=== PATIENT | male | born 1985 | race Caucasian/White ===

== ENCOUNTER 2022-11-26 14:00 | Outpatient (RCR) | payer OTHER, SELFPAY ==
--- NOTE | 2022-11-26 11:32 | PC.NURSE ---
Met with Vidal to complete a nursing assessment however Vidal did not want to complete the assessment as he stated he thought this was not a good time for him to do the program. He stated he is currently homeless living in a mcfp and has too many things going on including the need to find housing. He stated he is not able to focus while at the program as he needs to take care of his basic needs. He also stated his wants to take the children and move to [place] thus he has to deal with this as well. He reports he is on [place] until December and has money for an apartment however he needs to concentrate of finding one. I gave patient written resources to help him find housing. One he is more stablized with basic needs he wants to come back to the program. He denied SI or thoughts to harm himself. Reports he is safe. [facility] staff is aware.
== END 2022-11-26 23:59 | disposition home or self-care (01) ==
LOC: HO.PHPA 14:00
PROVIDERS: Visit Provider Psychiatry & Neurology Psychiatry
DX: F33.1 Major depressive disorder, recurrent, moderate (principal); F43.10 Post-traumatic stress disorder, unspecified; F90.9 Attention-deficit hyperactivity disorder, unspecified type; F41.1 Generalized anxiety disorder
CPT/HCPCS: 90791; 90853

== ENCOUNTER → 2023-03-19 08:45 | Outpatient (BNV) | payer OTHER, SELFPAY | PROVIDERS: Visit Provider Psychiatry & Neurology Psychiatry | DX: F43.10 Post-traumatic stress disorder, unspecified (principal); F32.2 Major depressive disorder, single episode, severe without psychotic features | CPT/HCPCS: 99212; 99214 ==

== ENCOUNTER 2023-03-29 10:30 | Outpatient (RCR) | payer OTHER, SELFPAY ==
[2023-03-19 11:45] VITALS: BP 130/92; PULSE 80; TEMP 36.6; BMI 33.3
--- NOTE | 2023-03-19 12:36 | PC.NURSE ---
Patient has a New PCP appointment with [facility] [place] office via telephone call. May 14, 2023 at 8:20 am. Office Number [phone]. [address] [facility]
--- NOTE | 2023-03-19 12:42 | PC.ADMIT ---
Patient is a 37 year old male who self referred back to [facility] d/t increased depression, anxiety, and PTSD sxs. Patient was at [facility] for one day in October however was not able to complete d/t homeless status, looking for housing. Patient reports stresses including his spouse moving to [place] with is daughter, his son who is autistic living in a residential home, DCF involvement, and unemployment. He currently is living in a room at a boarding house. 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 Patient stated he used condoms from [facility]. Patient plans on going to [facility] for STD testing. Patient stated he plans on going to [place] [facility] on of this week after program. Denied any symptoms of STD's t present. Patient is alert and oriented x4. Calm and cooperative. Presents with depressed mood and affect. Denied SI or HI. Safety plan given to patient and reviewed with him. Medications reconciled with patient and patient's pharmacy. He reports taking medications as prescribed.
--- NOTE | 2023-03-19 15:36 | HO.PS.ADMBH ---
[facility] Date of Service: 03/19/23 Chief Complaint: PTSD,BHUMI,MDD,ADHD Sources of Information: patient interviewed and chart reviewed HPI Healthcare Proxy: No Guardianship: No Medical Problems Affecting Mental Status: No Narrative: Start a partial hospital program today. Referred in the context of PTSD and depression and alcohol use disorder. Patient reports having lots of stressors and changes recently have impacted mood. When depressed experienced low mood, anxiety, no motivation, sleep and appetite disturbance and suicidal thoughts. Stressors include homelessness and had to leave where he was staying in August 2022. Thankfully renting a room for the last 2 months which overall is going well. 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 Plans on challenging this with an ip attorney. His 16-year-old daughter also relocated to [place] with her biological mother. He also has a son that is in residential treatment with autism. Reports that his left with the children in September 2021 without warning. Fell into financial stress in context of same. On a positive note recently rescued a dog. Recently utilizing juventino and working with the gnosticist and outreach. He is finding his juventino to be very rewarding and has noticed a significant improvement in his mood. Regarding alcohol use, does have a history of extended periods of sobriety. Last drink was in July of this year. Regarding medications has been on Wellbutrin 200 mg for 6 years at varying doses, Lexapro 20 mg for a couple of years and trazodone was tried in October but stopped this due to significant sedation. Also Xanax 0.5 mg 3 times per day, but does find this leads him to be sedate. Was previously on Ativan but experienced muscle jerking. Reports overall he would like to be on less medications and nonmedication approaches are his preference. We did discuss past medication history which has included Prozac, Effexor, maybe buspirone, Risperdal, olanzapine. Never been on Remeron, lithium, Abilify or Seroquel. Reports medical marijuana has been very helpful. Past Psychiatric History: Regarding medications has been on Wellbutrin 200 mg for 6 years at varying doses, Lexapro 20 mg for a couple of years and trazodone was tried in October but stopped this due to significant sedation. Also Xanax 0.5 mg 3 times per day, but does find this leads him to be sedate. Was previously on Ativan but experienced muscle jerking. Reports overall he would like to be on less medications and nonmedication approaches are his preference. We did discuss past medication history which has included Prozac, Effexor, maybe buspirone, Risperdal, olanzapine. Never been on Remeron, lithium, Abilify or Seroquel. Reports medical marijuana has been very helpful. History of rehabs and detoxes. No history of psychosis. No clear manic episodes. History of suicidal thoughts but never acted on same. Last time was when he was in [place] around 6 years ago. Nothing acute [facility] Medical History (Updated 03/19/23 @ 15:58 by Gordon Dobbs MD) No known health problems Family History: Alcohol use disorder Social History: Stressors include homelessness and had to leave where he was staying in August 2022. Thankfully renting a room for the last 2 months which overall is going well. 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 Plans on challenging this with an ip attorney. His 16-year-old daughter also relocated to [place] with her biological mother. He also has a son that is in residential treatment with autism. Reports that his left with the children in September 2021 without warning. Fell into financial stress in context of same. On a positive note recently rescued a dog. Recently utilizing juventino and working with the gnosticist and outreach. He is finding his juventino to be very rewarding and has noticed a significant improvement in his mood. Substance History: Alcohol use disorder Diagnostics Vital Signs (24Hr): Vital Signs - 24 hr 03/19/23 11:45 Temperature 98 F Pulse Rate 80 Blood Pressure 130/92 H BMI result Body Mass Index 33.3 Meds/Allergies Meds Home Medications Medication Instructions Recorded Confirmed Type alprazolam 0.5 mg tablet 0.5 mg PO TID PRN anxiety 03/19/23 03/19/23 History escitalopram oxalate 20 mg tablet 20 mg PO DAILY 03/19/23 03/19/23 History esomeprazole magnesium 40 mg 40 mg PO DAILY 03/19/23 03/19/23 History capsule,delayed release (Nexium) trazodone 50 mg tablet 25 - 100 mg PO BEDTIME PRN insomnia 03/19/23 03/19/23 History Allergies Allergies Allergy/AdvReac Type Severity Reaction Status Date / Time amoxicillin Allergy Unknown Verified 11/26/22 11:13 Mental Status Exam Mental Status Exam Narrative: Pleasant. Engaged. Fairly presented. Organized. Bright in affect. No SI. No HI. No agitation. No psychosis. Insight and judgment fair Telehealth Telehealth Location of provider rendering services: other ([facility]) Location of patient: other ([facility]) Patient Identification confirmed using: Name, : Yes Telehealth method: video Patient verbally consented to treatment: Yes Minutes spent on Phone/Video with Pt.: 30 Assessment & Plan Assessment & Plan (1) Severe major depression: Status: Acute Code(s): F32.2 - Major depressive disorder, single episode, severe without psychotic features (2) PTSD (post-traumatic stress disorder): Status: Acute Code(s): F43.10 - Post-traumatic stress disorder, unspecified Plan Overall there has been improvement in mood symptoms. These appear to be no medication related i.e. utilizing juventino and connecting with community. Wellbutrin does not appear to have had any benefit or side effects and we will therefore discontinue same in the context of patient's wish to be on as little medication as possible. We will follow-up sometime next week to review mood and ensure stability. Patient educated on: diagnosis, medication risk/benefits and therapeutic strategies Informed Consent: understands Reason for continued partial hosp. stay Substantial Risk for: med/psych decompensation Certification I certify that partial hospital treatment is medically necessary due to the symptoms and problems resulting from the patient's mental illness and the failure to treat the patient at the partial hospital level of care would likely result in the patient requiring inpatient psychiatric care which could not be prevented at a less intensive level of care. Time Spent With Patient Time: Total time managing care of this patient today _50___ minutes.
--- NOTE | 2023-03-21 17:35 | HO.PHP ---
Clients case was reviewed and opened today in treatment team.
--- NOTE | 2023-03-22 15:20 | HO.PHP ---
PHP staff member faxed over a referral for OP therapy and psychiatry through [facility] office. [facility] staff is awaiting a scheduled date and time with those appointments for Vidal.
--- NOTE | 2023-03-26 16:06 | HO.PHP ---
[facility] staff followed up with [facility] around Vidal's after care appointments for OP therapy and Psychiatry. [facility] staff spoke with Maddy, in which Maddy stated that she is going to work on scheduling those dates and will contact the [facility] staff member back later today. [facility] staff was receptive.
--- NOTE | 2023-03-27 08:12 | HO.PHP ---
[facility] staff received a phone call from Maddy from [facility], who noted that Vidal's OP therapy appointment is on April 08, 2023 at 10 AM with Paula Lorenzo at the [facility].
--- NOTE | 2023-03-27 08:52 | HO.PHP ---
[facility] staff received a phone call from Chelsea through [facility], who provided Vidal's med managment appointment through [facility] on [facility] with Tina Sarwatdaina on April 30, 2023 at 2 PM. Office number [phone]. [address] [place], [place] [id number].
--- NOTE | 2023-03-28 16:50 | HO.PHP ---
Vidal met with [facility] staff member regarding his discharge to see if he could discharge tomorrow or next Saturday. Vidal mentioned he does not want to leave in the middle of the week. [facility] staff assessed to see if he feels ready for discharge. Vidal disclosed now that he has his appointment times for OP therapy and med management, he feels he can continue to do his work in a one on one setting. [facility] staff was receptive and mentioned we will make his discharge date tomorrow. [facility] staff informed him if he feels he needs the program again, he could always contact back. Vidal was receptive. Vidal talked about his involvement with DCF and his confusion to what they are looking for. [facility] staff provided psycho-education and encouraged him to further ask his DCF worker to clarify his goals they are looking for. Vidal was receptive.
[2023-03-29 11:34] VITALS: BMI 28.7
--- NOTE | 2023-03-29 11:54 | HO.PHPPROGNO ---
Subjective Subjective Date of Service: 03/29/23 Reason For Visit: PTSD,BHUMI,MDD,ADHD Healthcare Proxy: No Guardianship: No Medical Problems Affecting Mental Status: No Interim History: As per evaluation 03/19/23: Referred in the context of PTSD and depression and alcohol use disorder. Patient reports having lots of stressors and changes recently have impacted mood.? When depressed experienced low mood, anxiety, no motivation, sleep and appetite disturbance and suicidal thoughts.? Stressors include homelessness and had to leave where he was staying in August 2022.? Thankfully renting a room for the last 2 months which overall is going well.? 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 Plans on challenging this with an supportive employment case manager.? His 16-year-old daughter also relocated to [place] with her biological mother.? He also has a son that is in residential treatment with autism.? Reports that his left with the children in September 2021 without warning.? Fell into financial stress in context of same.? On a positive note recently rescued a dog.? Recently utilizing juventino and working with the hinduism and outreach.? He is finding his juventino to be very rewarding and has noticed a significant improvement in his mood. Regarding alcohol use, does have a history of extended periods of sobriety.? Last drink was in July of this year. Regarding medications has been on Wellbutrin 200 mg for 6 years at varying doses, Lexapro 20 mg for a couple of years and trazodone was tried in October but stopped this due to significant sedation.? Also Xanax 0.5 mg 3 times per day, but does find this leads him to be sedate.? Was previously on Ativan but experienced muscle jerking.? Reports overall he would like to be on less medications and nonmedication approaches are his preference.? We did discuss past medication history which has included Prozac, Effexor, maybe buspirone, Risperdal, olanzapine.? Never been on Remeron, lithium, Abilify or Seroquel.? Reports medical marijuana has been very helpful. Overall there has been improvement in mood symptoms.? These appear to be no medication related i.e. utilizing juventino and connecting with community.? Wellbutrin does not appear to have had any benefit or side effects and we will therefore discontinue same in the context of patient's wish to be on as little medication as possible.? We will follow-up sometime next week to review mood and ensure stability. Today: Partial hospital nursing communicated that patient has discontinued trazodone is no benefit for sleep and has been sleeping poorly i.e. less than 4 hours per night. today patient reports his mood is in a good space. Thankful for the care he has received at the [facility] program. Coping skills, affirmations etc.. Not being hard on himself. Regarding sleep prefers non medication for/herbal approaches such as the Garry Littlejohn oil which really does help with sleep when he utilize that. Reports trazodone is useful but causes sedation which he experienced when he was visiting his son. Is helping support emotionally his 16-year-old daughter in [place]. Feeling positive regarding aftercare being set up through [facility] with a prescriber appointment in April and a therapy appointment before. Medication Compliance: Yes Side effects from medications: No Attending Groups: Yes Review of Systems Acute medical concerns: No Review of Systems Review of Systems Unremarkable Mental Status Exam Mental Status Exam Narrative: Pleasant. Engaged. While presented. Organized. Euthymic. No SI. No HI. No agitation or psychosis. Insight judgment fair Diagnostics Vital Signs (24Hr): Vital Signs - 24 hr 03/29/23 11:31 Temperature 99.3 F BMI result Body Mass Index 28.7 Assessment & Plan Assessment & Plan (1) PTSD (post-traumatic stress disorder): Status: Acute Code(s): F43.10 - Post-traumatic stress disorder, unspecified (2) Severe major depression: Status: Acute Code(s): F32.2 - Major depressive disorder, single episode, severe without psychotic features Plan Has clearly benefit from [facility] programming. Stable on current regimen. No negative effects from coming off wellbutrin. Sleep broken and trazodone not helpful/causes side effects. Prefers to use herbal for/non medication approaches regarding sleep. Would like to maintain Lexapro and Nexium. Is on Xanax and hopefully will come off this in the future. Happy that he has community-based providers including a med provider schedule in April. Refill sent for Lexapro and also Nexium. Believes he has a refill for Xanax and if not he will seek prior prescriber to complete a bridge prescription until April. Patient educated on: medication risk/benefits and therapeutic strategies Informed Consent: understands Reason for contiued partial hosp. stay Substantial Risk for: stable for discharge Certification I certify that partial hospital treatment is medically necessary due to the symptoms and problems resulting from the patient's mental illness and the failure to treat the patient at the partial hospital level of care would likely result in the patient requiring inpatient psychiatric care which could not be prevented at a less intensive level of care. Total time managing care of this patient today _20___ minutes. Discharge Plan Discharge Attending provider: Kulwant Lopez Additional Instructions: [facility] telephone call. May 14, 2023 at 8:20 am. Office Number [phone]. [address] [facility]. Vidal received an appointment for OP therapy through [facility] on [facility] with Paula Lorenzo on April 08, 2023 at 10 AM.Office number is . ?[address] [place] [address]. Vidal received an appointment for med management through [facility] with Tina Gaona on April 30, 2023 at 2 PM. Office number [phone]. [address] [place] [address]. Medications: Continued alprazolam 0.5 mg tablet 0.5 mg PO TID PRN (Reason: anxiety) esomeprazole magnesium [Nexium] 40 mg Capsule,Delayed Release(Dr/Ec) 40 mg PO DAILY 30 Days Qty: 30 0RF escitalopram oxalate 20 mg tablet 20 mg PO DAILY 30 Days Qty: 30 0RF Discontinued bupropion HCl 200 mg tablet sustained-release 12 hr 200 mg PO QAM trazodone 50 mg tablet 25 - 100 mg PO BEDTIME PRN (Reason: insomnia) Stand Alone Forms: Patient Portal Discharge page Patient Education: Depression (DC) Telehealth Telehealth Location of provider rendering services: other ([facility]) Location of patient: other ([facility]) Patient Identification confirmed using: Name, : Yes Telehealth method: video Patient verbally consented to treatment: Yes Minutes spent on Phone/Video with Pt.: 15
== END 2023-03-29 23:59 | disposition home or self-care (01) ==
LOC: HO.PHPA 10:30
PROVIDERS: Visit Provider Psychiatry & Neurology Psychiatry
DX: F32.2 Major depressive disorder, single episode, severe without psychotic features (principal); F43.10 Post-traumatic stress disorder, unspecified
CPT/HCPCS: 90791; 90853

== ENCOUNTER 2025-04-23 08:24 | Outpatient (REF) | payer OTHER, SELFPAY ==
--- NOTE | ~2025-04-23 | XR_ITS ---
EXAMINATION: XR SHOULDER 2 OR MORE VIEWS RIGHT HISTORY: M25.519 - Pain in unspecified shoulder COMPARISON: There are no prior studies available for comparison. FINDINGS: Three views of the right shoulder are submitted. Osseous mineralization is normal. There is no fracture or dislocation. The glenohumeral and acromioclavicular joint spaces are preserved. The soft tissues are unremarkable. XR/XR shoulder RT min 2V IMPRESSION: Unremarkable examination of the right shoulder. Electronically signed by: Dewayne Cuba MD 04/23/2025 11:42 AM EDT
--- OUTSIDE RECORDS SUMMARY | 2025-04-23 08:45 | XMS_ITS | Clinical Summary ---
Author Organization [employer] Address [address] [place] [address] Care Team Providers Care Wearing Apparel Folder Name Role Phone Unavailable Primary Care Provider Unavailabl e Encounters Date Type Department Care Team Description 04/14/2025 Telephone [facility] [address] [place] [address] Huan Pierce MD [facility] - New Patient Assistance from Last 3 Months Social History Tobacco Use Types Packs/Day Years Used Date Smoking Tobacco: Never Assessed Sex and Gender Information Value Date Recorded Sex Assigned at Not on file Legal Sex Male 1:59 PM EDT Gender Identity Not on file Sexual Orientation Not on file Plan of Treatment Health Maintenance Due Date Last Done Comments Depression Screening 1986 HIV Screening 1986 Lipid Panel 1986 SDOH Screening 1986 Disability Screening 1986 Alcohol/Substance Use Screening 1998 Tobacco Screening 1998 Family Planning (PISQ) 2001 HPV Vaccines (1 - Male 3-dos e series) 2001 Hepatitis C Screening 2004 DTaP/Tdap/Td Vaccines (1 - Tdap) 2005 Hepatitis B Vaccines (1 of 3 - 19+ 3-dose series) 2005 COVID-19 Vaccine (1 - 2023-2 5 season) 2025 Influenza Vaccine (#1) 2025 Zoster Vaccines (1 of 2) 2036 RSV Patients and Pa tients Aged 60 years or older (1 - 1-dose 75+ series) 2061 HIB Vaccines Aged Out No longer eligi ble based on patient's age to complete this topic Hepatitis A Vaccines Aged Out No long er eligible based on patient's age to complete this topic IPV Vaccines Aged Out No longer eligi ble based on patient's age to complete this topic Meningococcal B Vaccine Aged Out No l onger eligible based on patient's age to complete this topic Meningococcal Vaccine Aged Out No aubrey garret eligible based on patient's age to complete this topic Pneumococcal Vaccine: Pediat rics (0 to 5 Years) and At-Risk Patients (6 to 49) Years Aged Out No longer eligible b ased on patient's age to complete this topic RSV under 20 months Aged Out No longe r eligible based on patient's age to complete this topic Rotavirus Vaccines Aged Out No longer eligible based on patient's age to complete this topic
== END 2025-04-23 08:25 | disposition home or self-care (01) ==
LOC: HO.HOSX 08:24
PROVIDERS: Visit Provider Physician Assistant
DX: M79.601 Pain in right arm (principal); M54.2 Cervicalgia; R29.898 Other symptoms and signs involving the musculoskeletal system; R20.0 Anesthesia of skin; R20.2 Paresthesia of skin; M25.511 Pain in right shoulder
CPT/HCPCS: 73030; 99202

== ENCOUNTER 2025-04-23 10:48 | Outpatient (AMB) | payer OTHER, SELFPAY ==
--- NOTE | 2025-04-23 11:10 | A.OFFVIS_ITS ---
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 Patient has been homeless and has been sleeping on his right side for a long time which increased his pain. He mentions that his pain has been going on for 2 years and a half is unable to sleep. He was seen at the urgent care for his shoulder and gave him a topical cream and referral to us. His pain is having sharp ongoing pain. Patient notices tingling through out his whole arm and it radiates up to his neck. 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 Harrison is a 39-year-old right-hand dominant male who presents to the office today for evaluation of pain, weakness, numbness and tingling in the right upper extremity. He reports that he was homeless in the past and he was sleeping out of his car for 2 years. He reports the pain has been present for the past 2 years. 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 He is tearful at today's visit. [facility] Medical History (Updated 04/23/25 @ 11:50 by Laura Nuno PA-C) No known health problems Social History (Updated 04/23/25 @ 11:15 by Hayley Vazquez) Household Members: Other Household Members Other:: Dog Alcohol intake: never Patient Tobacco Use Status: Current everyday Tobacco user Tobacco use type: Cigarette Cigarettes Per Day: 10 Years Smoked: 22 Current occupation: right hand dominant Review of Systems Const All systems reviewed & are unremarkable except as noted in HPI and below Physical Exam Vital Signs: BMI result Body Mass Index 37.0 Const General: cooperative, healthy appearing and no acute distress Resp Effort & Inspection: normal respiratory effort and able to speak in complete sentences Extrem Other: Right upper extremity forward flexion abduction to 90 degrees. External rotation to end range. Pain with cross-body reach. Unable to attempt empty can due to patient pain. Reports numbness and tingling in all digits. 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 Able to perform wrist flexion and extension. Psych Appearance: grossly normal Mental Status: mental status grossly normal Attitude: cooperative Assessment & Plan Assessment & Plan (1) Right upper limb pain: Code(s): M79.601 - Pain in right arm Category: Medical (2) Neck pain: Code(s): M54.2 - Cervicalgia Category: Medical (3) Right arm weakness: Code(s): R29.898 - Other symptoms and signs involving the musculoskeletal system Category: Medical (4) Numbness and tingling of right arm: Code(s): R20.0 - Anesthesia of skin; R20.2 - Paresthesia of skin Category: Medical Plan Mr. Harrison is a 39-year-old right-hand dominant male who presents to the office today for evaluation of pain, weakness, numbness and tingling in the right upper extremity. He reports that he was homeless in the past and he was sleeping out of his car for 2 years. He reports the pain has been present for the past 2 years. 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 He is tearful at today's visit. While in the office today, the patient is extremely tearful. He was looking for some sort of pain relief to be achieved while in the office today. Unfortunately, with his symptoms they do seem to be stemming from his C-spine and neurologically related. He did inquire about a cortisone injection but I do not feel this would be appropriate at this time as the patient has not exhibiting symptoms of shoulder impingement or rotator cuff pathology indicative of cortisone injection. 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 I provided him with an out-of-work note for 2 weeks then he can return back full- time regular duty. I also placed a stat MRI order of his C-spine to evaluate the possibility of nerve impingement. Lastly, I placed an order for an EMG study to further evaluate the integrity of the neurological structures in the right upper extremity into his C-spine. He will follow up after the MRI and EMG has been obtained, sooner if needed. X-rays of the right shoulder which were obtained while in the office today and were reviewed by me, Laura Nuno PA-C, revealed no acute fracture, dislocation or abnormalities. Orders: Orders NE electromyogram (EMG) Today M54.2 - Cervicalgia, M79.601 - Pain in right arm, R20.0 - Anesthesia of skin, R20.2 - Paresthesia of skin, R29.898 - Other symptoms and signs involving the musculoskeletal system XR shoulder RT min 2V Today M25.519 - Pain in unspecified shoulder MR cervical spine wo con Today M54.2 - Cervicalgia, M79.601 - Pain in right arm, R20.0 - Anesthesia of skin, R20.2 - Paresthesia of skin, R29.898 - Other symptoms and signs involving the musculoskeletal system NE nerve conduction velocity Today M54.2 - Cervicalgia, M79.601 - Pain in right arm, R20.0 - Anesthesia of skin, R20.2 - Paresthesia of skin, R29.898 - Other symptoms and signs involving the musculoskeletal system Coding Level of Care Code New Pt Level 3 (08406) Diagnoses Right upper limb pain M79.601 Neck pain M54.2 Right arm weakness R29.898 Numbness and tingling of right arm R20.0; R20.2
[2025-04-23 11:15] VITALS: BMI 37.0
== END 2025-04-23 11:33 | disposition home or self-care (01) ==
LOC: HO.HOS 10:49
PROVIDERS: Visit Provider Physician Assistant
DX: M79.601 Pain in right arm (principal); M54.2 Cervicalgia; R29.898 Other symptoms and signs involving the musculoskeletal system; R20.0 Anesthesia of skin; R20.2 Paresthesia of skin
CPT/HCPCS: 99203

== ENCOUNTER → 2025-04-23 10:58 | Outpatient (BNV) | payer OTHER, SELFPAY | PROVIDERS: Visit Provider Radiology Diagnostic Radiology | DX: M25.519 Pain in unspecified shoulder (principal) | CPT/HCPCS: 73030 ==

== ENCOUNTER → 2025-05-03 07:53 | Outpatient (BNV) | payer OTHER, SELFPAY | PROVIDERS: Visit Provider Radiology Diagnostic Radiology | DX: M48.02 Spinal stenosis, cervical region (principal); M25.78 Osteophyte, vertebrae | CPT/HCPCS: 72141 ==

== ENCOUNTER 2025-05-03 07:57 | Outpatient (REF) | payer OTHER, SELFPAY ==
--- NOTE | ~2025-05-03 | MR_ITS ---
EXAMINATION: MR CERVICAL SPINE WITHOUT IV CONTRAST History: M79.601 - Pain in right arm Technique: Sagittal T1, T2 and STIR, bilateral sagittal oblique T2, and axial T1, T2 and gradient echo images of the cervical spine were obtained per departmental protocol. Comparison: There are no prior studies available for comparison. Findings: The vertebral bodies maintain normal height, alignment, and marrow signal intensity. The intervertebral discs maintain normal height and hydration. At C2-3, there is no evidence of disc herniation, central spinal stenosis, or neural foraminal narrowing. At C3-4, there is no evidence of disc herniation, central spinal stenosis, or neural foraminal narrowing. At C4-5, there is no evidence of disc herniation, central spinal stenosis, or neural foraminal narrowing. At C5-6, there is a posterior disc/osteophyte complex which is asymmetric to the right. This causes moderate central spinal stenosis and right neural foraminal narrowing. At C6-7, there is a diffuse disc bulge with a superimposed central disc protrusion. This causes moderate to severe central spinal stenosis. There is left neural foraminal stenosis secondary to uncovertebral joint hypertrophy. At C7-T1, there is no evidence of disc herniation, central spinal stenosis, or neural foraminal narrowing. The spinal cord demonstrates normal signal intensity. The visualized paraspinal soft tissues are unremarkable. MR/MR cervical spine wo con Impression: 1. Moderate central spinal stenosis and right neural foraminal narrowing at the C5-6 level secondary to a posterior disc/osteophyte. 2. Moderate to severe central spinal stenosis at C6-7 secondary to a diffuse disc bulge with superimposed central disc protrusion. Associated left neural foraminal narrowing secondary to uncovertebral joint hypertrophy. Electronically signed by: Dewayne Cuba MD 05/03/2025 09:23 AM EDT
--- OUTSIDE RECORDS SUMMARY | 2025-05-03 08:01 | XMS_ITS | Clinical Summary ---
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
== END 2025-05-03 07:58 | disposition home or self-care (01) ==
LOC: HO.MRI 07:57
PROVIDERS: Visit Provider Physician Assistant
DX: M54.2 Cervicalgia (principal); M79.601 Pain in right arm; R20.0 Anesthesia of skin; R20.2 Paresthesia of skin; R29.898 Other symptoms and signs involving the musculoskeletal system
CPT/HCPCS: 72141

== ENCOUNTER 2025-05-13 12:56 | Outpatient (REF) | payer OTHER, SELFPAY ==
--- NOTE | 2025-05-13 13:02 | EMG_ITS ---
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 Reason for referral: Evaluate for cervical radiculopathy Referred by: Laura NEWMAN Procedure done: Right upper extremity NCS/EMG Precautions and/or limitations: None The limb temperature was monitored continuously and remained between 32-36 degrees C during the performance of the NCS. Nerve Conduction Studies Anti Sensory Summary Table ?Stim Site NR Onset (ms) Norm Onset (ms) Peak (ms) Norm Peak (ms) O-P Amp (?V) Norm O-P Amp Site1 Site2 Delta-0 (ms) Dist (cm) Linus (m/s) Norm Linus (m/s) Right Median Anti Sensory (2nd Digit) Wrist ? 2.6 3.5 <3.6 32.1 >10 Wrist 2nd Digit 2.6 14.0 54 Right Radial Anti Sensory (Thumb) Forearm ? 1.7 2.4 <3.1 12.7 Forearm Thumb 1.7 0.0 Right Ulnar Anti Sensory (5th Digit) Wrist ? 2.3 3.1 <3.7 21.6 >15.0 Wrist 5th Digit 2.3 14.0 61 Motor Summary Table ?Stim Site NR Onset (ms) Norm Onset (ms) O-P Amp (mV) Norm O-P Amp iAmp (mV) Amp (1st) (%) Site1 Site2 Delta-0 (ms) Dist (cm) Linus (m/s) Norm Linus (m/s) Right Median Motor (Abd Poll Brev) Wrist ? 3.9 <3.9 8.6 >4.5 11.0 100.0 Elbow Wrist 4.1 21.0 51 >45 Elbow ? 8.0 9.9 12.3 115.1 Right Ulnar Motor (Abd Dig Minimi) Wrist ? 2.9 <3.0 6.6 >5 7.3 100.0 B Elbow Wrist 3.5 19.5 56 >45 B Elbow ? 6.4 5.7 6.6 86.4 A Elbow B Elbow 1.1 10.0 91 >45 A Elbow ? 7.5 5.9 7.0 89.4 EMG ?Side Muscle Nerve Root Ins Act Fibs Psw Amp Dur Poly Recrt Int Pat Comment Right 1stDorInt Ulnar C8-T1 Nml Nml Nml Nml Nml 0 Nml Complete Right FlexCarRad Median C6-7 Nml Nml Nml Nml Nml 0 Nml Complete Right Biceps Musculocut C5-6 Nml Nml Nml Nml Nml 0 Nml Complete Right Triceps Radial C6-7-8 Nml Nml Nml Nml Nml 0 Nml Complete Right Deltoid Axillary C5-6 Nml Nml Nml Nml Nml 0 Nml Complete Paraspinal EMG ?Side Muscle Nerve Root Ins Act Fibs Psw Comment Right Cervical Upper Rami Nml Nml Nml Right Cervical Mid Rami Nml Nml Nml Right Cervical Lower Rami Nml Nml Nml FINDINGS: All motor and sensory nerves tested showed normal latencies, amplitudes and conduction velocities. Concentric needle EMG was performed in selected muscles of the right upper extremity and cervical paraspinals. Study did not reveal signs of electric abnormalities as shown in the table above. IMPRESSION: 1. This is a normal study. 2. There is no electrodiagnostic evidence for median neuropathy, ulnar neuropathy, brachial plexopathy, or cervical radiculopathy. CLINICAL COMMENT: Patient requesting for referral to Pain Management.. Thank you for your kind referral. Bonny Hernandez MD, ROSA Board Certified, [place] Board of Physical Medicine and Rehabilitation (ABPMR) Board Certified, [place] Board of Electrodiagnostic Medicine (ABEM) [place] [id number] [facility]
== END 2025-05-13 12:57 | disposition home or self-care (01) ==
LOC: HO.NEURO 12:56
PROVIDERS: Visit Provider Physician Assistant
DX: M79.601 Pain in right arm (principal); M54.2 Cervicalgia; R29.898 Other symptoms and signs involving the musculoskeletal system; R20.0 Anesthesia of skin; R20.2 Paresthesia of skin
CPT/HCPCS: 95886; 95909

== ENCOUNTER → 2025-05-13 13:02 | Outpatient (BNV) | payer OTHER, SELFPAY | PROVIDERS: Visit Provider Physical Medicine & Rehabilitation | DX: M79.601 Pain in right arm (principal) | CPT/HCPCS: 95886; 95909 ==

== ENCOUNTER 2025-06-03 15:01 | Outpatient (AMB) | payer OTHER, SELFPAY ==
[2025-06-03 15:09] VITALS: BP 152/106; PULSE 90; RESP 16; O2SAT 95; BMI 35.4
--- NOTE | 2025-06-03 15:09 | MHC.OFFVIS ---
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 He reported that he started to feel this pain 1 year ago. He was evaluated by Orthopedic surgery and physiatry. EMG was done for him and it was negative. He can not sleep normally can not do activities of daily living he is able to take care of himself but he can not function normally. His pain level is 8/10. Weather changes in movements aggravate his pain. In terms of tissue damage he describes his pain as pulsing, shooting, pinching, crushing, pulling, hot burning, tingling, sore, hurting, aching, exhausting, sickening, fearful, terrifying, spreading, radiating, tight, tearing sensation. He had an MRI of the lumbar spine results of which dictated as below. He had in the EMG within normal limits with [facility]. He did not have physical therapy. He did not have any chiropractic manipulations. He takes ibuprofen and exuberant doses as well as THC to help his pain. He is currently working part-time. Recently he because of his pain lost his job and his house. Past medical history significant for asthma and depression. Acid reflux headaches and fatigue are another medical problems. He never had surgeries before. He admits smoking cigarettes 1/2 a pack a day. He denies drinking alcohol he states that he quit. He used THC on met cart he denies other recreational drugs. [facility] Medical History (Updated 06/03/25 @ 15:46 by Cesario Gray MD) No known health problems Social History (Updated 04/23/25 @ 11:15 by Hayley Vazquez) Household Members: Other Household Members Other:: Dog Alcohol intake: never Patient Tobacco Use Status: Current everyday Tobacco user Tobacco use type: Cigarette Cigarettes Per Day: 10 Years Smoked: 22 Current occupation: right hand dominant Review of Systems Const All systems reviewed & are unremarkable except as noted in HPI and below ENT Reports Normal hearing present Neuro Reports Normal hearing present, Denies Abnormal speech present, Denies confusion and Denies Sensory deficit (Neuro) Psych Denies confusion Physical Exam Vital Signs: Last Vital Signs Pulse 90 06/03/25 15:09 Resp 16 06/03/25 15:09 BP 152/106 H 06/03/25 15:09 Pulse Ox 95 06/03/25 15:09 Oxygen Delivery Method Room Air 06/03/25 15:09 BMI result Body Mass Index 35.4 Const General: no acute distress; No confusion Nutritional Appearance: obese morbidly obese Orientation/consciousness: patient oriented x3 and No confusion Eyes General: appearance normal, both eyes and all related structures Pupils: Equal, round and reactive pupils present EOM: EOMs intact bilaterally Neck Other: Limited range of motion of the cervical spine. Lhermitte's test is negative, Spurling test is positive on the right. Denies any symptoms on the left! Severe tenderness on palpation on the right side of the neck. Unable to flex neck backwards of forward to severe pain. Neck: No full ROM Chest Chest palpation & inspection: normal inspection of the chest Resp Effort & Inspection: normal respiratory effort, able to speak in complete sentences, normal respiratory pattern, no audible wheezes and no cough Cardio Jugular venous distension: no JVD GI Inspection: Yes normal to inspection Neuro General: patient oriented x3, gait normal and No confusion Cranial nerves: Yes CN's II-XII intact bilaterally, Yes Equal, round and reactive pupils present, Yes Normal hearing present and Yes Ability to bilaterally elevate shoulders present Speech: No Abnormal speech present Gait exam (Neuro): Normal gait present Motor exam (neuro): 5/5 motor strength present throughout Sensory Exam: No Sensory deficit (Neuro) Extrem General: No pedal edema Psych Speech and movement: Normal speech and movement present Affect: normal affect Attitude: cooperative Thought process: Normal thought process present Thought content: Normal thought content present Insight: Good insight present (Psych) Judgement: Good judgement present (Psych) Results Reviewed Results Reviewed: MR CERVICAL SPINE WITHOUT IV CONTRAST Findings: The vertebral bodies maintain normal height, alignment, and marrow signal intensity. The intervertebral discs maintain normal height and hydration. At C2-3, there is no evidence of disc herniation, central spinal stenosis, or neural foraminal narrowing. At C3-4, there is no evidence of disc herniation, central spinal stenosis, or neural foraminal narrowing. At C4-5, there is no evidence of disc herniation, central spinal stenosis, or neural foraminal narrowing. At C5-6, there is a posterior disc/osteophyte complex which is asymmetric to the right. This causes moderate central spinal stenosis and right neural foraminal narrowing. At C6-7, there is a diffuse disc bulge with a superimposed central disc protrusion. This causes moderate to severe central spinal stenosis. There is left neural foraminal stenosis secondary to uncovertebral joint hypertrophy. At C7-T1, there is no evidence of disc herniation, central spinal stenosis, or neural foraminal narrowing. The spinal cord demonstrates normal signal intensity. The visualized paraspinal soft tissues are unremarkable. Impression: 1. Moderate central spinal stenosis and right neural foraminal narrowing at the C5-6 level secondary to a posterior disc/osteophyte. 2. Moderate to severe central spinal stenosis at C6-7 secondary to a diffuse disc bulge with superimposed central disc protrusion. Associated left neural foraminal narrowing secondary to uncovertebral joint hypertrophy. 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 The MRI meanwhile demonstrates more aggravation on the left side. EMG is negative for nerve root compression it is negative for peripheral neuropathy. Therefore the condition of this patient most likely related to facet joints. I will schedule this patient for diagnostic medial branch block. I also will send him for physical therapy right away. By the time he will be on my schedule for diagnostic MBB his physical therapy would be almost done. Hopefully it will improve his pain in the neck. If the diagnostic medial branch block did not alleviate pain in his neck right arm right forearm and right fingers I am willing to try interlaminar C7-T1 epidural steroid injection more on the right. 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
--- OUTSIDE RECORDS SUMMARY | 2025-06-03 18:07 | XMS_ITS | Clinical Summary ---
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 Take 2 puffs by inhalation four times a day as needed as directed by study team. Active ALPRAZolam (XANAX XR) 1 MG 24 hr tablet Take 1 mg by mouth 2 (two) times a day. PRN Active sertraline (ZOLOFT) 100 MG tablet Take 100 mg by mouth daily. Active esomeprazole (NEXIUM) 40 MG capsule Take 40 mg by mouth daily before breakfast. Active propranoloL (INDERAL) 10 MG immediate release tablet Take 10 mg by mouth 3 (three) times a day. Active azithromycin (ZITHROMAX Z-BLAIRE) 250 MG tablet Take 2 tablets on day 1, and take 1 tablet on days 2 through 5 for a total of 5 days. 6 tablet 5 05/22/20 benzonatate (TESSALON) 100 MG capsule Take 1 capsule (100 mg total) by mouth 3 (three) times a day as needed for cough. 21 capsule 5 05/24/20 predniSONE (DELTASONE) 10 MG tablet Take 4 tablets (40 mg total) by mouth daily for 5 days. 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 Not on radha e 05/17/2025 Are you concerned about learning? Not on file 05/17/2025 No 05/17/2025 No 05/17/2025 Digital Access Answer Date Recorded No 05/17/2025 No 05/17/2025 Reliable internet access at home? Not on file 05/17/2025 Device with a working camera? Not on file Sex and Gender Information Value Date Recorded Sex Assigned at Not on file Legal Sex Male 12:29 PM EDT Gender Identity Not on file Sexual Orientation Not on file Last Filed Vital Signs Vital Sign Reading Time Taken Comments Blood Pressure 128/89 05/17/2025 12:44 PM EDT Pulse 82 05/17/2025 12:44 PM EDT Temperature 36.9 C (98.4 F) 05/17/2025 12:44 PM EDT Respiratory Rate 16 05/17/2025 12:44 PM EDT Oxygen Saturation 97% 05/17/2025 12:44 PM EDT Inhaled Oxygen Concentration - - Weight 117.9 kg (260 lb) 05/17/2025 12:44 PM EDT Height 180.3 cm (5' 11 ) 05/17/2025 12:44 PM EDT Body Mass Index 36.26 05/17/2025 12:44 PM EDT Plan of Treatment Health Maintenance Due Date Last Done Comments Adult Td,Tdap Booster 1986 LIPID PANEL 1986 DEPRESSION SCREENING 1998 HEPATITIS C SCREENING 2004 HIV ONE-TIME SCREENING (18-6 5 YEARS) 2004 SCREENING FOR DIABETES 2021 INFLUENZA VACCINE (#1) 2025 COVID-19 VACCINE (2024-2 6 season) 2025 SMOKING STATUS SCREENING (On ce After 26 Yrs) Completed 05/17/2025 HEPATITIS A VACCINES Aged Out No long er eligible based on patient's age to complete this topic HIB VACCINES Aged Out No longer eligi ble based on patient's age to complete this topic MENINGOCOCCAL VACCINES (ACWY) Aged Out No longer eligible based on patient's age to complete this topic MENINGOCOCCAL VACCINES (B) Aged Out N o longer eligible based on patient's age to complete this topic PNEUMOCOCCAL VACCINES (0-49 years) Aged Out No longer eligible based on patient's age to complete this topic Medical Devices Not on file Procedures Procedure Name Priority Date/Time Associated Diagnosis Comments XR CHEST PA AND LATERAL 2 VIEWS Urgent/patient waiting 05/17/2025 1:56 PM EDT Mild intermittent asthmatic bronchitis with acute exacerbation from Last 3 Months Results * XR CHEST PA AND LATERAL 2 VIEWS (05/17/2025 1:56 PM EDT) Anatomical Region Laterality Modality Chest Computed Radiogr aphy 05/17/2025 2:15 PM EDT Impressions 05/17/2025 2:15 PM EDT No acute abnormality. Narrative 05/17/2025 2:15 PM EDT XR CHEST PA AND LATERAL 2 VIEWS Referring clinician's provided indication for this examination in [facility]: Cough; 3 weeks of cough, nicotine dependence half a pack daily for 20 years, LCTAB COMPARISON: None available FINDINGS: Devices/Tubes/Lines: None. Lungs: No focal consolidation or pulmonary edema. Pleura: Normal. No pleural effusion or pneumothorax. Heart/Mediastinum: Normal heart size. Bones/Soft Tissues: No acute abnormality. Procedure Note Yeison Ivey MD, MPH - 05/17/2025 XR CHEST PA AND LATERAL 2 VIEWS Referring clinician's provided indication for this examination in [facility]:Cough; 3 weeks of cough, nicotine dependence half a pack daily for 20years, LCTAB COMPARISON: None available FINDINGS: Devices/Tubes/Lines: None. Lungs: No focal consolidation or pulmonary edema. Pleura: Normal. No pleural effusion or pneumothorax. Heart/Mediastinum: Normal heart size. Bones/Soft Tissues: No acute abnormality. IMPRESSION: No acute abnormality. Kodi Sheehan PA-C IMG XR CHEST Final Re sult from Last 3 Months Insurance WELLSENSE NON NSPG PCP [employer] NON NSPG PCP [employer] NON NSPG PCP [employer] [facility] [address] [place], [place] [address]ENSE NON NSPG PCP [employer] [place] NON NSPG PCP S[employer] [place] NON NSPG PCP [employer] Care Teams Docking Saw Operator Relationship Specialty Start Date End Date Pcp, Unknown PCP - General 05/17/25 Additional Source Comments The information contained in this document represents components of the legal health record. It is not the complete legal health record.[facility]
--- OUTSIDE RECORDS SUMMARY | 2025-06-03 18:07 | XMS_ITS | Clinical Summary ---
Author Organization [employer] Address [address] [facility] [address] [place] [address] Care Team Providers Care Patient Portal Representative Name Role Phone Unavailable Primary Care Provider Unavailabl e Encounters Date Type Department Care Team Description 04/14/2025 Telephone [facility] [address] [place] [address] Huan Pierce MD [facility] - New Patient [...]
== END 2025-06-03 15:39 | disposition home or self-care (01) ==
PROVIDERS: PCP Nurse Practitioner Family; Referring Provider Physician Assistant; Visit Provider Anesthesiology
DX: M47.812 Spondylosis without myelopathy or radiculopathy, cervical region (principal); M54.12 Radiculopathy, cervical region; M50.30 Other cervical disc degeneration, unspecified cervical region
CPT/HCPCS: 99203

== ENCOUNTER → 2025-06-03 15:01 | Outpatient (BNVA) | payer OTHER, SELFPAY | PROVIDERS: PCP Nurse Practitioner Family; Referring Provider Physician Assistant; Visit Provider Anesthesiology | DX: M47.812 Spondylosis without myelopathy or radiculopathy, cervical region (principal); M54.12 Radiculopathy, cervical region; M50.30 Other cervical disc degeneration, unspecified cervical region | CPT/HCPCS: 99202 ==